=== PATIENT | female | born 1990 | race African-American/Black ===

== ENCOUNTER 2017-03-02 17:26 | Emergency (ER) | payer MEDICAID ==
[~2017-03-02] VITALS: Ht 154.9 cm; Wt 65.8 kg
[2017-03-02 17:56] VITALS: BP 116/64
[2017-03-02 18:50] LABS: BASOPHILS # (AUTO) 0.3 K/uL (0.00-0.22); BASOPHILS % (AUTO) 3.5 % (0.0-2.0); EOSINOPHILS # (AUTO) 0.2 K/uL (0-0.4); EOSINOPHILS % (AUTO) 2.5 % (0.0-4.0); HEMOGLOBIN 12.5 g/dL (12.0-16.0); LYMPHOCYTES # (AUTO) 1.9 K/uL (2.5-16.5); MEAN CORPUSCULAR HEMOGLOBIN 31 pg (27-31); MEAN CORPUSCULAR HGB CONC 33 g/dL (33-37); MEAN CORPUSCULAR VOLUME 95 fL (80-94); MONOCYTES # (AUTO) 0.7 K/uL (0.8-1.0); MONOCYTES % (AUTO) 9.2 % (1.7-9.3); NEUTROPHILS # (AUTO) 4.1 K/uL (1.8-7.7); NEUTROPHILS % (AUTO) 58.8 % (42.2-75.2); PLATELET COUNT (AUTO) 253 K/uL (140-450); RED BLOOD CELL COUNT(AUTO) 3.99 MIL/uL (4.20-5.40); RED CELL DISTRIBUTION WIDTH 11.6 % (11.6-13.7); WHITE BLOOD COUNT (AUTO) 7.2 K/uL (4.8-10.8)
[2017-03-02 18:52] LABS: APPEARANCE,URINE HAZY (CLEAR); BLOOD, URINE NEGATIVE (NEGATIVE); COLOR,URINE YELLOW (YELLOW); LEUKOCYTE ESTERASE ,URINE NEGATIVE (NEGATIVE); NITRITE, URINE NEGATIVE (NEGATIVE); UGLUCOSE NEGATIVE (NEGATIVE)
[2017-03-02 18:53] LABS: BILIRUBIN,URINE NEGATIVE (NEGATIVE)
[2017-03-02 18:55] LABS: ANION GAP 12.1 (8-16); CARBON DIOXIDE 26.5 mmol/L (21-32); CREATININE 1.1 mg/dL (0.6-1.3); POTASSIUM 3.6 mmol/L (3.5-5.1)
[2017-03-02 18:58] LABS: RBC,URINE 0-3 /HPF (0-5); WBC,URINE 0-3 /HPF (0-5)
[2017-03-02 19:01] LABS: TOTAL BILIRUBIN 1.1 mg/dL (0.0-1.0)
--- NOTE | 2017-03-02 19:34 | NUR ---
TO ER BED 6
--- NOTE | 2017-03-02 19:36 | NUR ---
26 Y/O F W/C/O MIDDLE ABD PAIN, AND NAUSEA X TODAY. PT STATES HAS A HX OF ASTHMA AND GASTRITIS. NO S/S OF DISTRESS NOTED AT THE MOMENT ER MD MADE AWARE.
--- NOTE | 2017-03-02 20:07 | NUR ---
PT TAKEN FOR X-RAY VIA WHEELCHAIR.
[2017-03-02] MEDS ORDERED: KETOROLAC 60 MG/2 ML VIAL IM ONE (20:30)
--- NOTE | 2017-03-02 20:45 | NUR ---
Patient discharged with v/s stable. Written and verbal after care instructions given and explained. Patient alert, oriented and verbalized understanding of instructions. Ambulatory with steady gait. All questions addressed prior to discharge. ID band removed. Patient advised to follow up with PMD. Rx of COLACE 100MG BID, MOTRIN 800MG TID given. Patient educated on indication of medication including possible reaction and side effects. Opportunity to ask questions provided and answered.
[2017-03-02 20:49] VITALS: BP 119/61
== END 2017-03-02 20:49 | disposition home or self-care (01) ==
LOC: MED 17:26
DX: R10.33 Periumbilical pain (principal); R11.0 Nausea; J45.909 Unspecified asthma, uncomplicated
CPT/HCPCS: 36415; 74022; 80053; 81001; 81025; 82150; 83690; 85025; 96372; 99285; J1885

== ENCOUNTER 2017-05-12 11:04 | Emergency (ER) | payer MEDICAID ==
[~2017-05-12] VITALS: Ht 154.9 cm; Wt 59.9 kg
[2017-05-12 11:24] VITALS: BP 119/76
--- NOTE | 2017-05-12 11:37 | NUR ---
PATIENT PRESENTS TO ED WITH C/O N/D SINCE YESTERDAY WITH BACK PAIN 01/16; DENIES INJURY OR VOMITING;HX OF ASTHMA, GASTRITIS;RX OF PROTONIX, ALBUTEROL . PT STATES ABDOMINAL PAIN COMES AND GO;SKIN IS PINK/WARM/DRY; AAOX4 WITH EVEN AND STEADY GAIT; LUNGS CLEAR BL; HR EVEN AND REGULAR; PT DENIES ANY FEVER, CP, SOB, OR COUGH AT THIS TIME; PATIENT STATES PAIN OF /10 AT THIS TIME;PATIENT POSITIONED FOR COMFORT; HOB ELEVATED; BEDRAILS UP X2; BED DOWN. ER MD MADE AWARE OF PT STATUS.
[2017-05-12] MEDS ORDERED: KETOROLAC 60 MG/2 ML VIAL IM ONE (11:55)
[2017-05-12] MEDS ORDERED: ALUMINUM HYD/MAG/SIMETHICONE 30 ML UDC PO ONE (11:55)
[2017-05-12] MEDS ORDERED: DICYCLOMINE HCL LIQUID 10 MG/5 ML UDC PO ONE (11:55)
[2017-05-12] MEDS ORDERED: oxyCODONE/APAP 5/325 MG 1 TAB TAB PO ONE (11:55)
[2017-05-12] MEDS ORDERED: LIDOCAINE VISCOUS 2% 20 ML UDC PO ONE (11:55)
[2017-05-12 12:53] LABS: BASOPHILS # (AUTO) 0.2 K/uL (0.00-0.22); BASOPHILS % (AUTO) 3.2 % (0.0-2.0); EOSINOPHILS # (AUTO) 0.1 K/uL (0-0.4); EOSINOPHILS % (AUTO) 2.1 % (0.0-4.0); HEMOGLOBIN 13.1 g/dL (12.0-16.0); LYMPHOCYTES # (AUTO) 1.2 K/uL (2.5-16.5); LYMPHOCYTES % (AUTO) 18.3 % (20.5-51.1); MEAN CORPUSCULAR HEMOGLOBIN 31 pg (27-31); MEAN CORPUSCULAR HGB CONC 33 g/dL (33-37); MEAN CORPUSCULAR VOLUME 96 fL (80-94); MONOCYTES # (AUTO) 0.6 K/uL (0.8-1.0); MONOCYTES % (AUTO) 8.5 % (1.7-9.3); NEUTROPHILS # (AUTO) 4.5 K/uL (1.8-7.7); NEUTROPHILS % (AUTO) 67.9 % (42.2-75.2); PLATELET COUNT (AUTO) 271 K/uL (140-450); RED BLOOD CELL COUNT(AUTO) 4.18 MIL/uL (4.20-5.40); RED CELL DISTRIBUTION WIDTH 12.4 % (11.6-13.7); WHITE BLOOD COUNT (AUTO) 6.6 K/uL (4.8-10.8)
--- NOTE | 2017-05-12 13:10 | NUR ---
COMPLAINING OF BODY EACH. DENIES SOB/NO DISTRESS. RIAN MADE AWARE Addendum: 05/12/17 at 1321 by MEREDITH COMPLAINED OF BODY ITCH.DENIES SOB/NO RESP.DISTRESS.RIAN MADE AWARE
[2017-05-12 13:35] VITALS: BP 152/96
--- NOTE | 2017-05-12 13:35 | NUR ---
BODY ITCH RESOLVED.
== END 2017-05-12 13:36 | disposition home or self-care (01) ==
LOC: MED 11:04
DX: R10.13 Epigastric pain (principal); R11.0 Nausea; J45.909 Unspecified asthma, uncomplicated
CPT/HCPCS: 36415; 81002; 81025; 85025; 96372; 99284; J1885; Q0163

== ENCOUNTER 2018-02-14 11:18 | Emergency (ER) | payer MEDICAID ==
[~2018-02-14] VITALS: Ht 154.9 cm; Wt 69.4 kg
[2018-02-14 11:26] VITALS: BP 121/85
--- NOTE | 2018-02-14 11:33 | NUR ---
AMBULATES TO BED 4
--- NOTE | 2018-02-14 11:41 | NUR ---
C/O FLANK PAIN AND LOWER ABD ACHING PAIN 8/10 X 2 DAYS. DENEIS N/V/D OR FEVER. DENIES VAGINAL BLEEDING OR DYSURIA. ABD SOFT, NON TENDER, BS+. SKIN W/D/I. RESP EVEN AND UNLABORED. HX: ASTHMA
--- NOTE | 2018-02-14 12:17 | NUR ---
CHAN MOLINA. URINE COLLECTED AND PROCESSED.
[2018-02-14] MEDS ORDERED: KETOROLAC 60 MG/2 ML VIAL IM ONE (12:20)
[2018-02-14] MEDS ORDERED: LACTULOSE 20 GM/30 ML UDC PO ONE (12:20)
--- NOTE | 2018-02-14 12:28 | NUR ---
MEDICATED ORDERED. PT DESCRIBES CRAMPING SENSATION, HASNT HAD MENSES FOR THE LAST 3 MONTHS.
[2018-02-14 13:16] LABS: BARBITURATE, URINE NEG. ng/ml (NEG <=200); BENZODIAZEPINE, URINE NEG. ng/mL (NEG <=200); CANNABINOID, URINE POS. ng/mL (NEG <=50); COCAINE, URINE NEG. ng/mL (NEG <=300); OPIATE, URINE POS. ng/mL (NEG <=2000); PHENCYCLIDINE SCREEN,URINE NEG. ng/mL (NEG <=25)
[2018-02-14 13:27] LABS: BILIRUBIN,URINE NEGATIVE (NEGATIVE); BLOOD, URINE NEGATIVE (NEGATIVE); LEUKOCYTE ESTERASE ,URINE NEGATIVE (NEGATIVE); NITRITE, URINE NEGATIVE (NEGATIVE); PH,URINE 7.5 (5.0-9.0); UGLUCOSE NEGATIVE (NEGATIVE)
[2018-02-14 13:28] LABS: APPEARANCE,URINE CLEAR (CLEAR); COLOR,URINE YELLOW (YELLOW)
[2018-02-14 13:29] LABS: RBC,URINE NONE SEEN /HPF (0-5); WBC,URINE 0-5 (RARE) /HPF (0-5)
--- NOTE | 2018-02-14 14:29 | NUR ---
NO ACUTE CHNAGES IN CONDITON, AWAITING FURTHER DISPOSITION.
[2018-02-14 14:44] VITALS: BP 129/78
--- NOTE | 2018-02-14 14:46 | NUR ---
Patient discharged with v/s stable. Written and verbal after care instructions given and explained. Patient alert, oriented and verbalized understanding of instructions. Ambulatory with steady gait. All questions addressed prior to discharge. ID band removed. Patient advised to follow up with PMD. Rx of VOLATEREN given. Patient educated on indication of medication including possible reaction and side effects. Opportunity to ask questions provided and answered.
== END 2018-02-14 14:46 | disposition home or self-care (01) ==
LOC: MED 11:18
DX: R10.84 Generalized abdominal pain (principal); R78.1 Finding of opiate drug in blood; R78.4 Finding of other drugs of addictive potential in blood
CPT/HCPCS: 74018; 76856; 80305; 81001; 81025; 96372; 99285; J1885; Q0092

== ENCOUNTER 2018-09-14 10:13 | Emergency (ER) | payer MEDICAID ==
[~2018-09-14] VITALS: Ht 167.6 cm; Wt 75.8 kg
[2018-09-14 10:20] VITALS: BP 134/67
--- NOTE | 2018-09-14 10:21 | NUR ---
PT AMBULATES TO BED 8
--- NOTE | 2018-09-14 10:39 | NUR ---
BIB SELF WITH C/O INTERMITTENT CRAMPING IN LOWER ABD X 10 HOURS. PATIENT STATES SHE IS , CONFIRMED BY URINE HCG TEST IN ER. 08/06/18. STATES MILD NAUSEA NO VOMITING OR DIAHRREA REPORTED. NO OTHER SYMPTOMS REPORTED AT THIS TIME. PATIENT POSTIONED FOR COMFORT. BED IN LOW LOCKED POSTION.
--- NOTE | 2018-09-14 11:16 | NUR ---
US AT BEDSIDE.
[2018-09-14 11:20] LABS: APPEARANCE,URINE CLEAR (CLEAR); BILIRUBIN,URINE NEGATIVE (NEGATIVE); BLOOD, URINE NEGATIVE (NEGATIVE); COLOR,URINE YELLOW (YELLOW); LEUKOCYTE ESTERASE ,URINE NEGATIVE (NEGATIVE); NITRITE, URINE NEGATIVE (NEGATIVE); UGLUCOSE NEGATIVE (NEGATIVE)
[2018-09-14 11:21] LABS: BASOPHILS # (AUTO) 0.1 K/uL (0.00-0.22); BASOPHILS % (AUTO) 0.8 % (0.0-2.0); EOSINOPHILS # (AUTO) 0.1 K/uL (0-0.4); EOSINOPHILS % (AUTO) 1.4 % (0.0-4.0); HEMATOCRIT 37.5 % (36-48); HEMOGLOBIN 12.6 g/dL (12.0-16.0); LYMPHOCYTES # (AUTO) 1.4 K/uL (2.5-16.5); LYMPHOCYTES % (AUTO) 18.9 % (20.5-51.1); MEAN CORPUSCULAR HEMOGLOBIN 32 pg (27-31); MEAN CORPUSCULAR HGB CONC 34 g/dL (33-37); MEAN CORPUSCULAR VOLUME 95.1 fL (80-94); MONOCYTES # (AUTO) 0.6 K/uL (0.8-1.0); MONOCYTES % (AUTO) 7.7 % (1.7-9.3); NEUTROPHILS # (AUTO) 5.3 K/uL (1.8-7.7); NEUTROPHILS % (AUTO) 71.2 % (42.2-75.2); PLATELET COUNT (AUTO) 255 K/uL (140-450); RED BLOOD CELL COUNT(AUTO) 3.94 MIL/uL (4.20-5.40); RED CELL DISTRIBUTION WIDTH 12.4 % (11.6-13.7); WHITE BLOOD COUNT (AUTO) 7.5 K/uL (4.8-10.8)
[2018-09-14 11:49] LABS: RBC,URINE 0-5 /HPF (0-5); WBC,URINE 0-5 /HPF (0-5)
--- NOTE | 2018-09-14 13:00 | NUR ---
patient amb to restroom with steady gait.
[2018-09-14 13:28] VITALS: BP 125/70
--- NOTE | 2018-09-14 13:29 | NUR ---
Patient discharged with v/s stable. Written and verbal after care instructions given and explained. Patient verbalized understanding. Ambulatory with steady gait. All questions addressed prior to discharge. Advised to follow up with PMD.
== END 2018-09-14 13:29 | disposition home or self-care (01) ==
LOC: MED 10:13
DX: R11.2 Nausea with vomiting, unspecified (principal); R10.30 Lower abdominal pain, unspecified; R19.7 Diarrhea, unspecified; J45.909 Unspecified asthma, uncomplicated
CPT/HCPCS: 36415; 76817; 81001; 81025; 84702; 85025; 86900; 86901; 99284; Q0092; 87804

== ENCOUNTER 2018-11-27 09:45 | Emergency (ER) | payer MEDICAID ==
[~2018-11-27] VITALS: Ht 165.1 cm; Wt 61.2 kg
--- NOTE | 2018-11-27 09:55 | NUR ---
PT AMBULATED TO ER BED 07
--- NOTE | 2018-11-27 10:00 | NUR ---
28/F BIB SELF c/o suprapubic/ lower back pain, vaginal clear fluid leakage x yesterday; denies injury/trauma. denies vaginal bleeding. OB Dr. Hussein Abraham--- lmp 08/03/2018. DENIES N/V/D; PATIENT STATES PAIN OF 8/10 AT THIS TIME; PATIENT POSITIONED FOR COMFORT; HOB ELEVATED; BEDRAILS UP X1; BED DOWN. ER MD MADE AWARE OF PT STATUS.
--- NOTE | 2018-11-27 10:01 | NUR ---
urine cup handed to pt for sample
--- NOTE | 2018-11-27 10:01 | NUR ---
Patient being evaluated by DR SHAHID at bedside.
--- NOTE | 2018-11-27 10:21 | NUR ---
US AT BEDSIDE
--- NOTE | 2018-11-27 10:23 | NUR ---
LAB AT BEDSIDE
[2018-11-27 10:39] LABS: BASOPHILS % (AUTO) 0.5 % (0.0-2.0); EOSINOPHILS # (AUTO) 0.1 K/uL (0-0.4); EOSINOPHILS % (AUTO) 1.3 % (0.0-4.0); HEMATOCRIT 34.4 % (36-48); HEMOGLOBIN 12.1 g/dL (12.0-16.0); LYMPHOCYTES # (AUTO) 0.9 K/uL (2.5-16.5); LYMPHOCYTES % (AUTO) 10.2 % (20.5-51.1); MEAN CORPUSCULAR HEMOGLOBIN 33 pg (27-31); MEAN CORPUSCULAR HGB CONC 35 g/dL (33-37); MEAN CORPUSCULAR VOLUME 94.5 fL (80-94); MONOCYTES # (AUTO) 0.4 K/uL (0.8-1.0); MONOCYTES % (AUTO) 4.3 % (1.7-9.3); NEUTROPHILS # (AUTO) 7.7 K/uL (1.8-7.7); NEUTROPHILS % (AUTO) 83.7 % (42.2-75.2); PLATELET COUNT (AUTO) 303 K/uL (140-450); RED BLOOD CELL COUNT(AUTO) 3.64 MIL/uL (4.20-5.40); RED CELL DISTRIBUTION WIDTH 13.1 % (11.6-13.7); WHITE BLOOD COUNT (AUTO) 9.2 K/uL (4.8-10.8)
[2018-11-27 11:01] LABS: APPEARANCE,URINE HAZY (CLEAR); BILIRUBIN,URINE NEGATIVE (NEGATIVE); BLOOD, URINE NEGATIVE (NEGATIVE); COLOR,URINE YELLOW (YELLOW); LEUKOCYTE ESTERASE ,URINE NEGATIVE (NEGATIVE); NITRITE, URINE NEGATIVE (NEGATIVE); PH,URINE 8.5 (5.0-9.0); UGLUCOSE NEGATIVE (NEGATIVE)
[2018-11-27 11:18] LABS: RBC,URINE NONE SEEN /HPF (0-5); WBC,URINE 0-5 /HPF (0-5)
--- NOTE | 2018-11-27 11:25 | NUR ---
pelvic exam done by dr SHAHID . PT TOLERATED PROCEDURE WELL. RENATA SANTOS MARKETING PROGRAM MANAGER.
[2018-11-27 13:30] VITALS: BP 118/52
--- NOTE | 2018-11-27 13:30 | NUR ---
Patient discharged with v/s stable. Written and verbal after care instructions given and explained. Patient alert, oriented and verbalized understanding of instructions. Ambulatory with steady gait. All questions addressed prior to discharge. ID band removed. Patient advised to follow up with PMD. Rx of FLAGYL given. Patient educated on indication of medication including possible reaction and side effects. Opportunity to ask questions provided and answered.
[2018-11-29 13:13] LABS: CHLAMYDIA TRACHOMATIS AMP DNA NEGATIVE (NEGATIVE)
== END 2018-11-27 13:30 | disposition home or self-care (01) ==
LOC: MED 09:45
DX: O23.592 Infection of other part of genital tract in pregnancy, second trimester (principal); N76.0 Acute vaginitis; B96.89 Other specified bacterial agents as the cause of diseases classified elsewhere; J45.909 Unspecified asthma, uncomplicated; Z3A.16 16 weeks gestation of pregnancy
CPT/HCPCS: 36415; 76805; 81001; 81025; 84702; 85025; 87070; 87205; 87210; 87491; 99284; Q0092

== ENCOUNTER 2019-02-15 09:59 | Observation (INO) | payer MEDICAID ==
[~2019-02-15] VITALS: Ht 154.9 cm; Wt 78.9 kg
[2019-02-15 10:04] VITALS: BP 106/44
--- NOTE | 2019-02-15 10:09 | NUR ---
PT WILL GO TO L & D 5A VIA WHEELCHAIR AT THIS TIME.
[2019-02-15] MEDS ORDERED: TERBUTALINE 1 MG/ML VIAL SUBQ SCH (10:45)
[2019-02-15] MEDS: BETAMETH ACET/BETAMETH NA PH 30 MG/5 ML VIAL IM SCH ×2 (11:01→23:01)
[2019-02-15] MEDS ORDERED: TERBUTALINE 1 MG/ML VIAL SUBQ ONE (11:04)
[2019-02-15] MEDS ORDERED: BETAMETH ACET/BETAMETH NA PH 30 MG/5 ML VIAL IM ONE ×2 (11:09→22:51)
[2019-02-15 12:09] LABS: APPEARANCE,URINE CLEAR (CLEAR); BILIRUBIN,URINE NEGATIVE (NEGATIVE); BLOOD, URINE NEGATIVE (NEGATIVE); COLOR,URINE YELLOW (YELLOW); LEUKOCYTE ESTERASE ,URINE NEGATIVE (NEGATIVE); NITRITE, URINE NEGATIVE (NEGATIVE); UGLUCOSE NEGATIVE (NEGATIVE)
[2019-02-15 13:48] VITALS: BP 105/62
[2019-02-15] MEDS: TERBUTALINE 2.5 MG TAB PO SCH ×2 (13:59→20:00)
[2019-02-15] MEDS ORDERED: TERBUTALINE 2.5 MG TAB ONE ×2 (14:09→19:56)
[2019-02-15] MEDS: LACTATED RINGERS 1,000 ML IV SCH (16:06)
[2019-02-16] MEDS: LACTATED RINGERS 1,000 ML IV SCH ×2 (00:10→05:30)
[2019-02-16] MEDS: TERBUTALINE 2.5 MG TAB PO SCH (02:00)
[2019-02-16] MEDS ORDERED: TERBUTALINE 2.5 MG TAB ONE ×3 (02:08→15:11)
[2019-02-16] MEDS ORDERED: ACETAMINOPHEN 325 MG TAB PO PRN ×2 (06:55→15:00)
[2019-02-16] MEDS ORDERED: ACETAMINOPHEN 325 MG TAB ONE ×2 (07:35→15:11)
== END 2019-02-16 15:45 | disposition home or self-care (01) ==
LOC: MED 09:59 → MLD 10:33 → MFCC 14:30
PROVIDERS: ADMIT Obstetrics & Gynecology; ATTEND Obstetrics & Gynecology
DX: O26.893 Other specified pregnancy related conditions, third trimester (principal); R10.9 Unspecified abdominal pain; O99.89 Other specified diseases and conditions complicating pregnancy, childbirth and the puerperium; M54.9 Dorsalgia, unspecified; Z3A.28 28 weeks gestation of pregnancy
CPT/HCPCS: 36415; 76805; 81003; 82731; 85379; 96372; 99281; G0378; J0702; J3105; J7120; Q0092

== ENCOUNTER 2020-03-05 03:39 | Emergency (ER) | payer MEDICAID ==
[~2020-03-05] VITALS: Ht 154.9 cm; Wt 75.7 kg
[2020-03-05 03:42] VITALS: BP 145/91
--- NOTE | 2020-03-05 03:49 | NUR ---
PT TAKEN TO BED 5
--- NOTE | 2020-03-05 03:59 | NUR ---
Dr. Eid examining patient.
--- NOTE | 2020-03-05 04:01 | NUR ---
29 y/o female bib self for abdominal since 0200 today. A/ox4; gcs 15; respirations unlabored; 98% on RA. Abdominal pain noted on the LLQ relieved by pressure. Patient states she took ibuprofen with no relief. Pain is a 9/10 pressure- like pain, nonradiating. Abdominal sounds present on all quadrants; tender to touch upon palpation. Denies N/V/D. Last BM was today and regular. ERMD made aware. Placed on monitor. VSS. Bed in the lowest position. Side rail X1. Will continue to monitor
[2020-03-05] MEDS ORDERED: KETOROLAC 30 MG/ML VIAL IM ONE (04:05)
--- NOTE | 2020-03-05 04:32 | NUR ---
Patient taken to CT.
[2020-03-05 04:40] LABS: EOSINOPHILS # (AUTO) 0.1 K/uL (0-0.4); LYMPHOCYTES # (AUTO) 0.6 K/uL (2.5-16.5); MONOCYTES # (AUTO) 0.6 K/uL (0.8-1.0)
[2020-03-05] MEDS ORDERED: MORPHINE SULFATE 4 MG/ML SYR IM ONE (04:45)
[2020-03-05] MEDS ORDERED: ONDANSETRON 4 MG/2 ML VIAL IVP ONE (04:50)
[2020-03-05] MEDS ORDERED: MORPHINE SULFATE 4 MG/ML SYR IVP ONE (04:50)
[2020-03-05 04:58] LABS: BASOPHILS % (AUTO) 0.3 % (0.0-2.0); HEMATOCRIT 36.8 % (36-48); HEMOGLOBIN 12.4 g/dL (12.0-16.0); LYMPHOCYTES % (AUTO) 10.1 % (20.5-51.1); MEAN CORPUSCULAR HEMOGLOBIN 33 pg (27-31); MEAN CORPUSCULAR HGB CONC 34 g/dL (33-37); MEAN CORPUSCULAR VOLUME 96.4 fL (80-94); MONOCYTES % (AUTO) 9.2 % (1.7-9.3); NEUTROPHILS # (AUTO) 4.9 K/uL (1.8-7.7); NEUTROPHILS % (AUTO) 78.4 % (42.2-75.2); PLATELET COUNT (AUTO) 221 K/uL (140-450); RED BLOOD CELL COUNT(AUTO) 3.81 MIL/uL (4.20-5.40); RED CELL DISTRIBUTION WIDTH 13.4 % (11.6-13.7); WHITE BLOOD COUNT (AUTO) 6.2 K/uL (4.8-10.8)
[2020-03-05 05:11] LABS: ANION GAP 16.1 (8-16); CARBON DIOXIDE 23.2 mmol/L (21-32); POTASSIUM 4.3 mmol/L (3.5-5.1); TOTAL BILIRUBIN 0.9 mg/dL (0.0-1.0)
--- NOTE | 2020-03-05 05:27 | NUR ---
PT. RESTING IN BED WITH EYES CLOSED. NO DISTRESS NOTED. WILL CONTINUE TO MONITOR.
--- NOTE | 2020-03-05 06:31 | NUR ---
PATIENT RESTING IN BED. NO DISTRESS NOTED. WILL CONTINUE TO MONITOR.
--- NOTE | 2020-03-05 07:20 | NUR ---
Pt report given to Cali SANTOS. Transfer of care at this time.
--- NOTE | 2020-03-05 07:27 | NUR ---
REPORT RECEIVED FROM DARLIN RN AND ASSUMED CARE. PT IS SLEEPING AT THIS TIME AND EASILY AROUSEALE TO VOICE. WILL CONTINUE TO MONITOR.
[2020-03-05 09:03] VITALS: BP 131/86
--- NOTE | 2020-03-05 09:04 | NUR ---
Patient discharged with v/s stable. Written and verbal after care instructions given and explained. Patient alert, oriented and verbalized understanding of instructions. Ambulatory with steady gait. All questions addressed prior to discharge. ID band removed. Patient advised to follow up with PMD. Rx of MOTRIN AND NORCO given. Patient educated on indication of medication including possible reaction and side effects. Opportunity to ask questions provided and answered.
== END 2020-03-05 09:04 | disposition home or self-care (01) ==
LOC: MED 03:39
DX: R10.32 Left lower quadrant pain (principal); R19.07 Generalized intra-abdominal and pelvic swelling, mass and lump; J45.909 Unspecified asthma, uncomplicated
CPT/HCPCS: 36415; 74176; 76856; 80053; 81025; 85025; 96372; 96374; 96375; 99285; J1885; J2270; J2405; Q0092

== ENCOUNTER 2021-02-09 16:29 | Emergency (ER) | payer MEDICAID ==
[~2021-02-09] VITALS: Ht 154.9 cm; Wt 74.8 kg
[2021-02-09 17:11] VITALS: BP 127/70
--- NOTE | 2021-02-09 17:16 | NUR ---
PT TO WAIT IN LOBBY. HANDED URINE CUP
--- NOTE | 2021-02-09 18:26 | NUR ---
DR. BLANCHARD BEDSIDE EVALUATING PT
--- NOTE | 2021-02-09 18:30 | NUR ---
30 Y/O FEMALE C/O RLQ ABDOMINAL PAIN X3 DAYS THAT RADIATES TO HER BACK. DENIES NAUSEA/VOMITING/DIARRHEA. PT STATES PAIN IS WORSE WHEN SHE SITS OR LAYS DOWN. PT STATES "HER BM HAS BEEN NORMAL, BUT HAS NOTICED SHE HAS BEEN PASSING GAS MORE THAN USUAL." PMH:GASTRITIS AND ASTHMA NKDA
[2021-02-09 18:46] LABS: BASOPHILS # (AUTO) 0.1 K/uL (0.00-0.22); EOSINOPHILS # (AUTO) 0.4 K/uL (0-0.4); EOSINOPHILS % (AUTO) 5.8 % (0.0-4.0); HEMATOCRIT 36.9 % (36-48); HEMOGLOBIN 12.5 g/dL (12.0-16.0); LYMPHOCYTES # (AUTO) 1.8 K/uL (2.5-16.5); LYMPHOCYTES % (AUTO) 29.2 % (20.5-51.1); MEAN CORPUSCULAR HEMOGLOBIN 32 pg (27-31); MEAN CORPUSCULAR HGB CONC 34 g/dL (33-37); MEAN CORPUSCULAR VOLUME 94.7 fL (80-94); MONOCYTES # (AUTO) 0.5 K/uL (0.8-1.0); NEUTROPHILS # (AUTO) 3.3 K/uL (1.8-7.7); PLATELET COUNT (AUTO) 244 K/uL (140-450); RED BLOOD CELL COUNT(AUTO) 3.89 MIL/uL (4.20-5.40); RED CELL DISTRIBUTION WIDTH 12.9 % (11.6-13.7); WHITE BLOOD COUNT (AUTO) 6.1 K/uL (4.8-10.8)
--- NOTE | 2021-02-09 18:51 | NUR ---
PT TAKEN TO CT VIA W/C
--- NOTE | 2021-02-09 19:01 | NUR ---
PT RETURNED TO BED [address] VIA W/C
[2021-02-09 19:07] LABS: ALBUMIN 3.7 g/dL (3.4-5.0); ANION GAP 10.4 (8-16); CARBON DIOXIDE 26.9 mmol/L (21-32); CREATININE 0.9 mg/dL (0.6-1.3); POTASSIUM 4.3 mmol/L (3.5-5.1); TOTAL BILIRUBIN 0.4 mg/dL (0.0-1.0)
[2021-02-09] MEDS: KETOROLAC 30 MG/ML VIAL IM ONE (19:07)
--- NOTE | 2021-02-09 19:24 | NUR ---
REPORT RECEIVED FROM DANIELLE GARLAND FOR CONTINUATION OF PATIENT CARE AT THIS TIME.
--- NOTE | 2021-02-09 19:24 | NUR ---
Pt report given to DANIELLE LAU. Transfer of care at this time.
--- NOTE | 2021-02-09 19:39 | NUR ---
Patient laying in bed locked in lowest position x1 side rail up, breathing even and unlabored. Patient denies any pain. Bowel sounds present throughout. Connected patient to monitor w vss. Will continue to monitor.
[2021-02-09 20:02] LABS: APPEARANCE,URINE SL CLOUDY (CLEAR); BILIRUBIN,URINE NEGATIVE (NEGATIVE); BLOOD, URINE NEGATIVE (NEGATIVE); COLOR,URINE YELLOW (YELLOW); LEUKOCYTE ESTERASE ,URINE NEGATIVE (NEGATIVE); NITRITE, URINE NEGATIVE (NEGATIVE); UGLUCOSE NEGATIVE (NEGATIVE)
--- NOTE | 2021-02-09 20:07 | NUR ---
ULTRASOUND AT BEDSIDE
[2021-02-09] MEDS: HYDROcodone/APAP 5/325 MG 1 TAB TAB PO ONE (20:40)
--- NOTE | 2021-02-09 20:40 | NUR ---
PATIENT DENIES ANY PAIN AT THIS TIME.
--- NOTE | 2021-02-09 21:53 | NUR ---
Dr. Cabral examining patient.
[2021-02-09 22:20] VITALS: BP 138/69
--- NOTE | 2021-02-09 22:20 | NUR ---
PATIENT ELOPED FROM FACILITY. PATIENT REFUSED MEDICATIONS. DISCHARGE INSTRUCTIONS NOT GIVEN TO PATIENT. DR. BLANCHARD NOTIFIED.
[2021-02-09] MEDS: MORPHINE SULFATE 4 MG/ML SYR IM ONE (22:24)
== END 2021-02-09 22:20 | disposition left against medical advice (07) ==
LOC: MED 16:29
DX: N83.9 Noninflammatory disorder of ovary, fallopian tube and broad ligament, unspecified (principal); M54.9 Dorsalgia, unspecified; J45.909 Unspecified asthma, uncomplicated; Z98.890 Other specified postprocedural states; Z90.710 Acquired absence of both cervix and uterus
CPT/HCPCS: 36415; 74176; 76856; 80053; 81003; 81025; 83690; 85025; 93976; 96372; 99285; J1885

== ENCOUNTER 2021-03-11 10:08 | Emergency (ER) | payer MEDICAID ==
[~2021-03-11] VITALS: Ht 154.9 cm; Wt 72.6 kg
[2021-03-11 10:09] VITALS: BP 135/90
--- NOTE | 2021-03-11 10:17 | NUR ---
Patient ambulated to bed 12 with a steady gait.
--- NOTE | 2021-03-11 10:20 | NUR ---
Patient is a 30 y/o female c/o generalized abdominal pain and nausea x3 days. Patient is an ache that radiates to her back and 10/10 on a pain scale; minimal relief with heating pad, Ibuprofen and Tramadol (which patient states she is no longer taking). Patient denies CP, SOB, lightheaded or dizziness, dysuria, fever, chills, URI symptoms, or recent travel. Rx: denies PMH: right ovarian tumor, hysterectomy, asthma NKA
--- NOTE | 2021-03-11 10:25 | NUR ---
Dr. Barber at the bedside evaluating patient.
[2021-03-11] MEDS ORDERED: KETOROLAC 60 MG/2 ML VIAL IM ONE (10:40)
--- NOTE | 2021-03-11 10:52 | NUR ---
Ultrasound at the bedside.
--- NOTE | 2021-03-11 10:57 | NUR ---
heavy equipment service technician unable to perform ultrasound because patient's daughter is crying at the bedside
--- NOTE | 2021-03-11 11:18 | NUR ---
Ultrasound at the bedside
--- NOTE | 2021-03-11 11:45 | NUR ---
Dr. Barber at the bedside re-evaluating patient.
--- NOTE | 2021-03-11 11:52 | NUR ---
Patient resting comfortably in bed, VSS, bed locked and in the lowest position for patient's safety, and call light within reach.
[2021-03-11] MEDS ORDERED: ACET-8386 PO (12:57)
--- NOTE | 2021-03-11 13:00 | NUR ---
Per patient, needs to sisal picker kids from school and unsure how much longer she can wait for results. Dr. Barber notified and aware. Per Dr. Barber, if patient unable to wait for results, she will have to sign out Against Medical Advice (AMA).
--- NOTE | 2021-03-11 13:18 | NUR ---
Patient resting comfortably in bed, VSS, bed locked and in the lowest position for patient's safety, and call light within reach.
[2021-03-11 13:48] VITALS: BP 145/97
--- NOTE | 2021-03-11 13:48 | NUR ---
Patient discharged with v/s stable. Written and verbal after care instructions given and explained. Patient alert, oriented and verbalized understanding of instructions. Ambulatory with steady gait. All questions addressed prior to discharge. ID band removed. Patient advised to follow up with PMD. Rx of hydrocodone/acetaminophen given. Patient educated on indication of medication including possible reaction and side effects. Opportunity to ask questions provided and answered.
== END 2021-03-11 13:48 | disposition home or self-care (01) ==
LOC: MED 10:08
DX: R19.09 Other intra-abdominal and pelvic swelling, mass and lump (principal); R11.0 Nausea; J45.909 Unspecified asthma, uncomplicated; Z98.890 Other specified postprocedural states; Z79.899 Other long term (current) drug therapy; Z90.710 Acquired absence of both cervix and uterus
CPT/HCPCS: 76830; 93976; 96372; 99284; J1885; Q0092

== ENCOUNTER 2021-07-14 19:04 | Emergency (ER) | payer MEDICAID ==
[~2021-07-14 19:04] MED LIST: ACET-8386 PO
--- NOTE | 2021-07-14 20:21 | NUR ---
CALLED TO TRIAGE NO ANSWER.
--- NOTE | 2021-07-14 20:22 | NUR ---
CALLED PT'S CELL PHONE, STATED SHE LEFT TO GRINDER OPERATOR [employer]. PT STATED SHE WILL GO TO URGENT CARE IN THE AM.
== END 2021-07-14 20:22 | disposition left against medical advice (07) ==
LOC: MED 19:04
DX: Z53.21 Procedure and treatment not carried out due to patient leaving prior to being seen by health care provider (principal)